=== PATIENT | male | born 1955 | race African-American/Black ===

== ENCOUNTER 2019-08-16 01:02 | Emergency (ER) | payer BC ==
[~2019-08-16] VITALS: Ht 175.3 cm; Wt 83.9 kg
[2019-08-16 01:24] LABS: BASOPHILS 0.6 % (0.0-2.0); EOSINOPHILS 0.6 % (0.0-3.0); HEMATOCRIT 37.1 % (42.0-52.0); HEMOGLOBIN 11.7 gm/dL (14.0-18.0); LYMPHOCYTES 15.2 % (24.0-44.0); MCHC 31.6 g/dL (28.0-37.0); MCV 82.4 fL (80.0-100.0); MONOCYTES 3.6 % (1.0-8.0); PLATELET COUNT 174 thou/uL (150-400); RDW 13.3 % (10.5-14.5); WBC 3.7 thou/uL (4.0-11.0)
[2019-08-16 01:37] LABS: CALCIUM 10.1 mg/dL (8.5-10.1); CREATININE 2.2 mg/dL (0.7-1.3); POTASSIUM 4.2 mmol/L (3.5-5.1)
[2019-08-16] MEDS ORDERED: METOPROLOL SUC100 MG PO (01:41)
[2019-08-16] MEDS ORDERED: GLUCOPHAGE1000 MG PO (01:41)
[2019-08-16] MEDS ORDERED: NORVASC 2.5 MG2.5 M1 PO (01:42)
[2019-08-16 01:43] LABS: ALBUMIN 3.7 g/dL (3.4-5.0); DIRECT BILIRUBIN 0.3 mg/dL (<0.1-0.2); TOTAL BILIRUBIN 1.3 mg/dL (<0.1-1.0); TOTAL PROTEIN 7.7 g/dL (6.4-8.2)
[2019-08-16] MEDS ORDERED: IRBESARTAN300 MG PO (01:43)
[2019-08-16] MEDS ORDERED: FISH OIL 1,0001 EAC9 PO (01:43)
[2019-08-16 01:44] LABS: URINE BILIRUBIN NEGATIVE (Negative); URINE BLOOD 2+ (Negative); URINE CLARITY CLEAR; URINE COLOR YELLOW; URINE GLUCOSE-RANDOM* NEGATIVE (Negative); URINE KETONES NEGATIVE (Negative); URINE LEUKOCYTES-REFLEX 1+ (Negative); URINE NITRITE-REFLEX POSITIVE (Negative); URINE PROTEIN (DIPSTICK) 2+ (Negative)
[2019-08-16] MEDS ORDERED: TORSEMIDE10 MG PO (01:46)
[2019-08-16] MEDS ORDERED: EZETIMIBE SIMV PO (01:46)
[2019-08-16] MEDS ORDERED: ELIQUIS2.5 MG PO (01:48)
[2019-08-16] MEDS ORDERED: PEPCID20 MG PO (01:49)
[2019-08-16] MEDS ORDERED: MONTELUKAST SODI4 M1 PO (01:50)
[2019-08-16] MEDS ORDERED: BENZONATATE200 MG PO (01:51)
[2019-08-16 01:56] LABS: CASTS None Seen /LPF (None Seen); MUCUS None Seen strn/LPF (None Seen); SQUAMOUS None Seen /LPF (0-3)
[2019-08-16 01:57] LABS: BACTERIA-REFLEX >30 Many /HPF (None Seen); CRYSTALS None Seen /LPF (None Seen); URINE WBC-REFLEX >25 Many /HPF (0-5)
[2019-08-16] MEDS ORDERED: ZOFRAN ODT4 MG PO ×2 (04:49→04:54)
[2019-08-16] MEDS ORDERED: KEFLEX500 M1 PO ×2 (04:49→04:54)
[2019-08-16] MEDS ORDERED: NORCO 5-325 TA1 EAC1 PO ×2 (04:49→04:54)
[2019-08-16 05:11] VITALS: BP 105/56
--- NOTE | 2019-08-17 11:21 | EKG ---
[address] [address] ELECTROCARDIOGRAM REPORT Name: CLOTILDE AKBAR [id number] Admission: 08/16/19 Attend Phys: Discharge: 08/16/19 Date of : 51 Report #: [id number] THIS REPORT FOR: //name// [facility] ED Test Date: 2019-08-16 Test Time: 01:41:37 Pat Name: CLOTILDE AKBAR Department: Room: Gender: [employer] Worker: Michelle RUVALCABA : 1955 Requested By: Kate Decker Order Number: [id number] MD: Richard Rico Measurements Intervals [place] Rate: 107 P: 38 HI: 210 QRS: -23 QRSD: 84 T: 20 QT: 317 QTc: 423 Interpretive Statements Sinus tachycardia Borderline prolonged HI interval Probable left atrial enlargement Borderline left axis deviation Compared to ECG 01/07/2009 10:56:41 Sinus rhythm no longer present Left ventricular hypertrophy no longer present Incomplete right bundle-branch block no longer present Electronically Signed On 08-17-2019 11:21:10 [employer] by Richard Rico [email or web address] <ELECTRONICALLY SIGNED> By: Richard Rico MD 08/17/19 1121 0 0 Richard Rico MD /EPI
== END 2019-08-16 05:02 | disposition home or self-care (01) ==
LOC: ER 01:02
PROVIDERS: Emergency Medicine
DX: N39.0 Urinary tract infection, site not specified (principal); N20.0 Calculus of kidney; R11.2 Nausea with vomiting, unspecified; E78.00 Pure hypercholesterolemia, unspecified; E11.9 Type 2 diabetes mellitus without complications; Z87.891 Personal history of nicotine dependence

== ENCOUNTER → 2020-08-24 | Outpatient (CLI) | payer BC ==
[~2020-08-24] MED LIST: BENZONATATE200 MG PO; ELIQUIS2.5 MG PO; EZETIMIBE SIMV PO; FISH OIL 1,0001 EAC9 PO; GLUCOPHAGE1000 MG PO; IRBESARTAN300 MG PO; KEFLEX500 M1 PO; METOPROLOL SUC100 MG PO; MONTELUKAST SODI4 M1 PO; NORCO 5-325 TA1 EAC1 PO; NORVASC 2.5 MG2.5 M1 PO; PEPCID20 MG PO; TORSEMIDE10 MG PO; ZOFRAN ODT4 MG PO
== END ==
LOC: SJCVCIMAG 08:59
PROVIDERS: ATTEND Internal Medicine
DX: I51.7 Cardiomegaly (principal); I48.91 Unspecified atrial fibrillation; I25.810 Atherosclerosis of coronary artery bypass graft(s) without angina pectoris; Z95.1 Presence of aortocoronary bypass graft